=== PATIENT | male | born 1985 | race Caucasian/White ===

== ENCOUNTER 2017-05-07 18:09 | Emergency (ER) | payer SELFPAY ==
[~2017-05-07] VITALS: Ht 170.2 cm; Wt 110.0 kg
[~2017-05-07 18:09] MED LIST: DICL75 PO
[2017-05-07 18:11] VITALS: BP 134/82; PULSE 94; RESP 20; TEMP 99.2; O2SAT 94
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
--- NOTE | 2017-05-07 19:05 | RADRPT ---
EXAM DATE/TIME: 05/07/2017 18:45 [facility] COMPARISON: No previous studies available for comparison. INDICATIONS : Left hand pain after dropping generator on hand. MEDICAL HISTORY : None. SURGICAL HISTORY : None. ENCOUNTER: Initial ACUITY: 2 days PAIN SCORE: 8/10 LOCATION: Left middle hand. FINDINGS: Three view examination of the left hand demonstrates no soft tissue swelling, dislocation, or fractur e. The carpal bones appear intact. The interphalangeal and metacarpophalangeal joints are intact. Bony mineralization is normal. Small radiopaque foreign body in the soft tissues along the volar kirsty face of the wrist. CONCLUSION: 1. No acute fracture or joint dislocation. 2. Small radiopaque foreign body in the soft tissues along the volar surface of the wrist. Mega Lassiter MD on May 07, 2017 at 19:02 Board Certified Radiologist. This report was verified electronically.
[2017-05-07 20:06] VITALS: BP 127/80; PULSE 87; RESP 20; O2SAT 99
[2017-05-07] MEDS ORDERED: IBUP800T23 PO (20:30)
[2017-05-07] MEDS ORDERED: HYDR-3533 PO (20:30)
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
== END 2017-05-07 21:10 | disposition home or self-care (01) ==
LOC: NEPE 18:09
DX: S67.22XA Crushing injury of left hand, initial encounter (principal); Z72.0 Tobacco use; Z87.39 Personal history of other diseases of the musculoskeletal system and connective tissue; Z86.79 Personal history of other diseases of the circulatory system; W23.0XXA Caught, crushed, jammed, or pinched between moving objects, initial encounter
CPT/HCPCS: 73130; 99283

== ENCOUNTER 2017-05-09 19:24 | Emergency (ER) | payer SELFPAY ==
[~2017-05-09] VITALS: Ht 170.2 cm; Wt 105.0 kg
[~2017-05-09 19:24] MED LIST changes: +HYDR-3533 PO; +IBUP800T23 PO
[2017-05-09 19:25] VITALS: BP 147/69; PULSE 92; RESP 14; TEMP 98.1; O2SAT 97
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
== END 2017-05-09 21:13 | disposition home or self-care (01) ==
LOC: NEPD 19:24
DX: Z04.2 Encounter for examination and observation following work accident (principal); F17.200 Nicotine dependence, unspecified, uncomplicated
CPT/HCPCS: 99281